=== PATIENT | female | born 1945 | race Caucasian/White ===

== ENCOUNTER 2017-11-13 12:15 | Emergency (ER) | payer MEDICARE ==
[~2017-11-13] VITALS: Ht 165.1 cm; Wt 68.2 kg
[~2017-11-13 12:15] MED LIST: ASPIRIN LOW DOS81 M2 PO; CITRACAL + D OR; DEBROX6.5 % AD; EFFEXOR XR150 MG OR; EFFEXOR XR150 MG PO; EFFEXOR XR75 MG PO; FLECAINIDE100 MG PO; FLUARIX QUADRIV1 INJ IM; FLUTICASONE50 MCG; GABAPENTIN600 MG PO; HYDROCO/APAP1 T10 OR; HYDROCORTISO2.51 EX; LEVOTHYROXIN100 MCG PO; LEVOTHYROXIN137 MCG PO; LEVOTHYROXIN150 MCG PO; LEVOTHYROXIN25 MCG OR; LEXAPRO10 MG PO; LISINOPRIL10 MG PO; MEDDOSEPAK PO; MELATONIN5 MG OR; MELOXICAM7.5 MG PO; METOPROL TAR25 MG PO; NEXIUM40 M1 OR; OMNICEF300 M1 PO; PRAVASTATIN SOD20 MG PO; PRAVASTATIN20 MG PO; SINGULAIR10 MG PO; SOMA350 MG OR; TENORMIN PO; ULTRAM50 M1 PO; VALERIAN OR; VITAMIN B-12250 MCG OR
[2017-11-13] MEDS ORDERED: XYZAL ALLERGY 245 MG PO (12:27)
[2017-11-13] MEDS ORDERED: LEVOTHYROXIN150 MC1 PO (12:29)
[2017-11-13] MEDS ORDERED: LEXAPRO10 MG PO (12:30)
[2017-11-13] MEDS ORDERED: DONEPEZIL5 MG PO (12:31)
[2017-11-13] MEDS ORDERED: COUMADIN5 MG PO (12:31)
[2017-11-13] MEDS ORDERED: NEURONTIN300 MG PO (12:32)
[2017-11-13] MEDS ORDERED: MAPAP500 MG PO (12:33)
[2017-11-13] MEDS ORDERED: ATORVASTATIN CA10 MG PO (12:34)
[2017-11-13 13:13] LABS: HEMATOCRIT 48.3 % (37.0-47.0); HEMOGLOBIN 16.1 g/dl (12.0-16.0); IMMATURE GRANULOCYTES 0.3 % (0.0-1.0); MEAN CELL VOLUME 86.3 fL CALC (80.0-100.0); MEAN CORPUSCULAR HGB 28.8 pG CALC (26.0-32.0); MEAN CORPUSCULAR HGB CONC 33.3 g/L CALC (32.0-36.0); NEUT# 9.37 thou/uL (2.00-7.15); RED BLOOD COUNT 5.6 mill/uL (4.20-5.60); RED CELL DISTRI WIDTH 13.2 % (11.5-15.5)
[2017-11-13 13:32] LABS: ALBUMIN 4.3 g/dL (3.2-5.0); ALKALINE PHOSPHATASE 114 u/l (38-126); ANION GAP 20 (6-22 (CALC)); BILIRUBIN, TOTAL 1.1 mg/dL (0.0-1.4); BUN 15 mg/dL (8-23); BUN/CREATININE RATIO 19 (12-20 (CALC)); CARBON DIOXIDE 21 mmol/l (22-30); CHLORIDE 104 mmol/l (95-108); CREATININE 0.8 mg/dL (0.5-1.0); GFR > 60 ML/MIN (>=60 (CALC)); GFR FOR AFR.AMER. > 60 ML/MIN (>=60 (CALC)); POTASSIUM 3.8 mmol/l (3.5-5.1); SGOT/AST 37 u/l (9-36); SGPT/ALT 15 u/l (11-66); SODIUM 142 mmol/l (137-146)
[2017-11-13 13:34] LABS: TOTAL PROTEIN 8.4 g/dL (6.3-8.2)
[2017-11-13 13:38] LABS: PROTHROMBIN TIME 11.5 SECONDS (9.0-12.5)
[2017-11-13 13:41] VITALS: BP 176/82
== END 2017-11-13 13:42 | disposition short-term general hospital (02) ==
LOC: ED 12:15
PROVIDERS: Emergency Medicine
DX: I63.9 Cerebral infarction, unspecified (principal); I10 Essential (primary) hypertension; I48.91 Unspecified atrial fibrillation; R47.01 Aphasia; R29.810 Facial weakness; R53.1 Weakness; R29.710 NIHSS score 10; R94.31 Abnormal electrocardiogram [ECG] [EKG]

== ENCOUNTER 2018-03-02 07:33 | Inpatient (IN) | payer MEDICARE ==
[~2018-03-02] VITALS: Ht 157.5 cm; Wt 54.4 kg
[~2018-03-02 07:33] MED LIST changes: +ATORVASTATIN CA40 MG PO; +COUMADIN5 MG PO; +DONEPEZIL5 MG PO; +MAPAP500 MG PO; +NEURONTIN300 MG PO; +XYZAL ALLERGY 245 MG PO
--- NOTE | 2018-03-02 07:46 | NUR ---
PT TO ER VIA EMS. EMS REPORTS VIA STATES THAT THE PT HAS NOT EATTEN OR TAKEN MEDS IN THE LAST 8 DAYS. PT PHYSICIAN WANTS PT EVALUATED FOR A FAILURE TO THRIVE. PT IS AOX1 TO SELF- CURRENT NORMAL FOR PT ACCORDING TO EMS. PT IS APHASIC AND UNABLE TO ANSWER WHAT BASIC ITEMS ARE.
--- NOTE | 2018-03-02 07:53 | NUR ---
UNABLE TO RECONCILE MEDS PATIENT CONFEUSED AND UNAWARE OF WHAT MEDICATIONS SHE CURRENTLY TAKES OR LAST TIME SHE TOOK THEM. THERE IS NO FAMILY AT BEDSIDE TO CONFIRM MEDS EITHER.
--- NOTE | 2018-03-02 08:53 | NUR ---
PT RESTING ON STRETCHER, IV PATENT WITH FLUIDS RUNNING. AT BEDSIDE
[2018-03-02 09:06] LABS: HEMATOCRIT 47.8 % (37.0-47.0); HEMOGLOBIN 16.2 g/dl (12.0-16.0); IMMATURE GRANULOCYTES 0.1 % (0.0-5.0); MEAN CELL VOLUME 89.3 fL CALC (80.0-100.0); MEAN CORPUSCULAR HGB 30.3 pG CALC (26.0-32.0); MEAN CORPUSCULAR HGB CONC 33.9 g/L CALC (32.0-36.0); NEUT# 5.67 thou/uL (2.00-7.15); RED BLOOD COUNT 5.35 mill/uL (4.20-5.60); RED CELL DISTRI WIDTH 13.2 % (11.5-15.5)
[2018-03-02 09:34] LABS: PROTHROMBIN TIME 11.4 SECONDS (9.0-12.5)
[2018-03-02 09:39] LABS: ALBUMIN 4.1 g/dL (3.2-5.0); ALKALINE PHOSPHATASE 92 u/l (38-126); ANION GAP 13 (6-22 (CALC)); BILIRUBIN, TOTAL 1.1 mg/dL (0.0-1.4); BUN 16 mg/dL (8-23); BUN/CREATININE RATIO 19 (12-20 (CALC)); CARBON DIOXIDE 26 mmol/l (22-30); CHLORIDE 110 mmol/l (95-108); CREATININE 0.9 mg/dL (0.5-1.0); GFR > 60 ML/MIN (>=60 (CALC)); GFR FOR AFR.AMER. > 60 ML/MIN (>=60 (CALC)); POTASSIUM 3.6 mmol/l (3.5-5.1); SGOT/AST 49 u/l (9-36); SGPT/ALT 32 u/l (11-66); SODIUM 145 mmol/l (137-146); TOTAL PROTEIN 7.4 g/dL (6.3-8.2)
--- NOTE | 2018-03-02 09:47 | NUR ---
PT RESTING ON STRETCHER, IV PATENT WITH FLUIDS RUNNING, NO PAIN OR EDEMA AT SITE. NO COMPLAINTS STATED. AT BEDSIDE
[2018-03-02 09:51] LABS: MYOGLOBIN 24 ng/mL (0 - 62)
--- NOTE | 2018-03-02 09:59 | NUR ---
URINE COLLECTED VIA STRAIGHT CATH USING STERILE PROCEDURE
[2018-03-02 10:10] LABS: TSH, 3RD GENERATION 1.03 uIU/mL (0.47 - 4.68)
[2018-03-02 10:17] LABS: URINE BILIRUBIN - DIPSTICK NEGATIVE (NEGATIVE); URINE BLOOD DIPSTICK TRACE-INTACT (NEGATIVE); URINE COLOR YELLOW; URINE GLUCOSE - DIPSTICK NEGATIVE (NEGATIVE); URINE KETONE TRACE mg/dL (NEGATIVE); URINE LEUK ESTERASE NEGATIVE (NEGATIVE); URINE PH 5.5 (4.5-8.0); URINE PROTEIN - DIPSTICK NEGATIVE (NEG-TRACE); URINE SPECIFIC GRAVITY >=1.030
[2018-03-02 10:18] LABS: URINE CLARITY SL CLOUDY; URINE NITRITE - DIPSTICK POSITIVE (Negative)
[2018-03-02 10:22] LABS: URINE BACTERIA MANY hpf
[2018-03-02 10:23] LABS: URINE RBC 0-2 RBC/hpf (0-5)
[2018-03-02 10:24] LABS: URINE AMORPH SEDIMENT FEW hpf (NONE-FEW); URINE HYALINE CAST FEW lpf (NONE-RARE); URINE SQUAMOUS EPITHELIAL CELL FEW EPI/hpf (0-FEW)
--- NOTE | 2018-03-02 10:26 | NUR ---
PATIENT RESTING AWAITNG RESULTS FROM MD PATIENT DENIES ANY PAIN OR DISCOMFORT AT THIS TIME. PATIENT REMAINS CONFUSED BUT IS HER NORMAL PER FAMILY.
--- NOTE | 2018-03-02 11:26 | NUR ---
PT RESTING ON STRETCHER, NO COMPLAINTS STATED, AWAITING ADMISSION
--- NOTE | 2018-03-02 11:43 | NUR ---
REPORT CALLED TO FLOR MARIANO
--- NOTE | 2018-03-02 11:50 | NUR ---
Admission Note Report Given to: FLOR RN Transported by: Wheelchair X Stretcher Transported with: X Nurse Transporter X Patent IV O2 X Practice Office Associate TRANSPORT[place] [facility] [place] [facility] [place]
--- NOTE | 2018-03-02 11:57 | NUR ---
PT CAME FROM ER VIA STRETCHER BY ANI. AMAYA IN ROOM TO TRANSFER PT TO BED. IN ROOM.
[2018-03-02 12:03] VITALS: BP 120/56
[2018-03-02] MEDS ORDERED: NORVASC5 M1 PO (14:55)
[2018-03-02] MEDS ORDERED: D3-10001000 UNIT PO (14:56)
[2018-03-02] MEDS ORDERED: OMEPRAZOLE20 M2 PO (14:57)
[2018-03-02] MEDS ORDERED: ELIQUIS5 MG PO (14:57)
[2018-03-02] MEDS ORDERED: SINGULAIR10 MG PO (14:58)
[2018-03-02] MEDS ORDERED: VITAMIN B-12100 MCG PO (14:59)
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
[2018-03-02] MEDS ORDERED: MIRALAX3350 NF PO (15:01)
[2018-03-02] MEDS ORDERED: AMIODARONE200 MG PO (15:16)
--- NOTE | 2018-03-02 15:28 | NUR ---
REFUSED PT EVAL. REPORTS SHE WAS FEELING TOO WEAK AND WANTED TO REST.
[2018-03-02 16:17] VITALS: BP 135/67
--- NOTE | 2018-03-02 16:24 | NUR ---
[facility] ESMER DOLAN IN TO SPEAK TO PATIENT BUT PATIENT IS CONFUSE. PATIENT STATED SHE LIVES WITH MOM AND DAD. ESMER STATED THAT PATIENT HOME HEALTH WERE CONCERN THAT SIGNIFICANT OTHER IS UNABLE TO TAKE CARE OF PATIENT. HE IS 84 YEARS OLD. ALSO ESMER IS SPEAKING NOW TO OPAL HILARIO.
[2018-03-02 19:10] VITALS: BP 151/70
--- NOTE | 2018-03-02 20:00 | NUR ---
BEDSIDE REPORT RECEIVED FROM GARCÍA CRUMP. PT RESTING IN BED ALERT WITH CONFUSION. DENIES PAIN CURRENTLY. RESPIRATIONS EVEN AND UNLABORED ON ROOM AIR. HYGEINE GIVEN AT THIS TIME FOR INCONTINENT URINE. SAFETY MEASURES IN PLACE. CALL LIGHT WITHIN REACH.
--- NOTE | 2018-03-03 00:28 | NUR ---
PT ASLEEP AT THIS TIME WITH NO SIGNS OF DISTRESS. RESPIRATIONS EVEN AND UNLABORED ON ROOM AIR. ALERT WITH CONFUSION. IV FLUIDS INFUSING WITHOUT DIFFICULTY; IV SITE APPEARS HEALTHY. PT IS MAX ASSIST; RESPOSITIONS SELF IN BED. NO REQUESTS OR COMPLAINTS AT THIS TIME. DOES NOT USE CALL LIGHT; NEEDS ARE ANTICIPATED BY STAFF. SAFETY MEASURES IN PLACE INCLUDING BED ALARM.
[2018-03-03 00:30] VITALS: BP 138/57
--- NOTE | 2018-03-03 04:00 | NUR ---
PT ASLEEP AT THIS TIME WITH NO SIGNS OF DISTRESS. RESPIRATIONS EVEN AND UNLABORED WITH NO SIGNS OF DISTRESS. NO ACUTE CHANGES IN CONDITION THROUGHOUT THE NIGHT. SAFETY MEASURES IN PLACE. CALL LIGHT WITHIN REACH.
[2018-03-03 04:45] VITALS: BP 111/73
[2018-03-03 05:05] LABS: IMMATURE GRANULOCYTES 0.3 % (0.0-5.0); MEAN CELL VOLUME 90.2 fL CALC (80.0-100.0); MEAN CORPUSCULAR HGB 30.5 pG CALC (26.0-32.0); MEAN CORPUSCULAR HGB CONC 33.8 g/L CALC (32.0-36.0); NEUT# 3.86 thou/uL (2.00-7.15); RED BLOOD COUNT 4.39 mill/uL (4.20-5.60); RED CELL DISTRI WIDTH 13.1 % (11.5-15.5)
[2018-03-03 05:09] LABS: HEMATOCRIT 39.6 % (37.0-47.0); HEMOGLOBIN 13.4 g/dl (12.0-16.0)
[2018-03-03 05:26] LABS: ANION GAP 11 (6-22 (CALC)); BUN 12 mg/dL (8-23); BUN/CREATININE RATIO 15 (12-20 (CALC)); CARBON DIOXIDE 25 mmol/l (22-30); CHLORIDE 112 mmol/l (95-108); CREATININE 0.8 mg/dL (0.5-1.0); GFR > 60 ML/MIN (>=60 (CALC)); GFR FOR AFR.AMER. > 60 ML/MIN (>=60 (CALC)); MAGNESIUM 1.7 mg/dL (1.6-2.3); POTASSIUM 3.4 mmol/l (3.5-5.1); SODIUM 144 mmol/l (137-146)
--- NOTE | 2018-03-03 07:00 | NUR ---
SHIFT CHANGE REPORT FROM CHARO, PT SLEEPING, BREATHING EVEN AND NON-LABORED, NO SIGN DISCOMFORT, IVF INFUSING, CALL SARMIENTO IN REACH.
[2018-03-03 08:53] VITALS: BP 136/65
[2018-03-03 11:17] VITALS: BP 125/63
--- NOTE | 2018-03-03 13:10 | NUR ---
SIGNIFICANT OTHER ASKED TO PROVIDE POA DOCS AND JUST BROUGHT THEM IN, CM (SANTO) REVIEWED DOCS AND MADE COPIES. PT CONFUSED AND DISORIENTED BUT FOLLOWS COMMANDS, BODY ALARM IN PLACE, WILL CONTINUE TO MONITOR.
[2018-03-03 15:37] VITALS: BP 118/64
--- NOTE | 2018-03-03 16:00 | NUR ---
POOR APPETITE, REFUSES TO EAT AND NEEDS MUCH ENCOURAGEMENT, ALWAYS STATES SHE IS NOT HUNGRY. ABDULLAHI FROM DIETARY CONSULTED AND MADE MODIFICATIONS TO MEAL, WILL CONTINUE TO MONITOR.
[2018-03-03 19:11] VITALS: BP 129/60
--- NOTE | 2018-03-03 20:00 | NUR ---
BEDSIDE REPORT RECEIVED FROM GARCÍA ESTEBAN. PT RESTING IN BED ON RIGHT SIDE WITH EYES CLOSED; AWAKENS TO VERBAL STIMULI. SHE OPENS HER EYES BUT DOES NOT LOOK TOWARDS SOUND; KEEPS HEAD TURNED TO THE RIGHT. SHE DENIES PAIN CURRENTLY. RESPIRATIONS EVEN AND UNLABORED ON ROOM AIR. UNABLE TO DISCUSS PLAN OF CARE R/T PT'S CONGNITIVE FUNCTION AT THIS TIME. SHE DOES NOT USE CALL LIGHT. NEEDS ARE ANICIPATED BY STAFF.
--- NOTE | 2018-03-04 00:12 | NUR ---
PT ASLEEP AT THIS TIME WITH NO SIGNS OF DISTRESS. RESPIRATIONS EVEN AND UNLABORED ON ROOM AIR. IV SITE APPEARS HEALTHY AND FLUSHES. NO REQUESTS OR CONCERNS AT THIS TIME. AMBULATES INDEPENDENTLY TO BATHROOM; USES CALL LIGHT PRN FOR ASSISTANCE. SAFETY MEASURES IN PLACE. CALL LIGHT WITHIN REACH.
--- NOTE | 2018-03-04 00:16 | NUR ---
PT ASLEEP AT THIS TIME WITH NO SIGNS OF DISTRESS. RESPIRATIONS EVEN AND UNLABORED ON ROOM AIR. IV FLUIDS INFUSING WITHOUT DIFFICULTY; IV SITE APPEARS HEALTHY. PT ASSISTED WITH TURNING AND HYGIENE GIVEN FOR INCONTINENT EPISODES. PT REMAINS ON ASPIRATION PRECAUTIONS AND HONEY THICKENED LIQUIDS. SAFETY MEASURES IN PLACE. CALL LIGHT WITHIN REACH.
--- NOTE | 2018-03-04 04:05 | NUR ---
NO ACUTE CHANGES IN CONDITION THROUGHOUT THE NIGHT. CALL LIGHT WITHIN REACH. NEEDS ANITICIAPTED BY STAFF.
--- NOTE | 2018-03-04 04:26 | NUR ---
PT NO LONGER IN AFIB; EKG CONFIRMED SINUS BRADYCARDIA
[2018-03-04 04:56] VITALS: BP 126/60
[2018-03-04 09:05] VITALS: BP 119/40
--- NOTE | 2018-03-04 09:05 | NUR ---
ASSESSMENT IS COMPLETED: IV SITE IS FREE FROM REDNESS OR EDEMA. HR IS REG, PULSES ARE STRONG X4, ABD IS SOFT WITH ACTIVE BS., TELE MONITOR IN PLACE. BREATH SOUNDS ARE CLEAR, BILATERALLY. CONITNUE TO OBSERVE AND MONITOR.
[2018-03-04 10:58] VITALS: BP 123/70
--- NOTE | 2018-03-04 12:56 | NUR ---
Pt seen for therapy this pm. She was in bed, alert but did not answer all questions appropriately. She performed AROM to all extremities with guidance of therapist in supine. Pt required mod/max assist to move supine to and from sit. CGA required to maintain sitting and encourage pt to lean towards the L. Pt was able to do LAQ in sitting. Sit to stand with max assist x 1, she was able to wt bear on LE but after standing wanted to sit and lean back to bed. Pt returned to supine and positioned appropriately with alarm on, call romero in reach, caregiver in room.
[2018-03-04] MEDS ORDERED: MACROBID100 MG PO (14:12)
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
[2018-03-04 14:54] VITALS: BP 108/53
[2018-03-04 19:00] VITALS: BP 126/57
--- NOTE | 2018-03-04 19:28 | NUR ---
PT IS IN BED ON SIDE W/BED ALARM ON, AIDE WAS JUST IN W/PT OFFERING FOOD AND PO FLUIDS. SHE REPORTS THAT SHE HAS REFUSED. WILL CONTINUE TO ENCOURAGE THESE.
--- NOTE | 2018-03-04 23:15 | NUR ---
PT MEDICATED ORDERS PROVIDE. PT WAS INCONTINENT OF URINE, WE PROVIDED FULL BED BATH AND CHANGED GOWN AND BEDDING. PT CONFUSED BUT NOT COMBATIVE. TELE PLACED BACK. NO S/O PAIN OR DISTRESS OTHER THAN CONFUSION OVER WHAT IS HAPPENING. PT ENCOURAGED TO DRINK THICKENED WATER AND EAT APPLE SAUCE WITH PILLS. SHE ACCEPTED THREE BITES OF THE APPLE S. AND TWO SIPS OF WATER THEN REFUSED ANY FURTHER. PT LEFT CALM IN BED WITH LIGHTS LOW AND BED ALARM ON.
[2018-03-05 00:05] VITALS: BP 99/57
--- NOTE | 2018-03-05 04:43 | NUR ---
PT V/S ASSESSED AND PT CLEANED OF INCONTINENT URINE. PT IS NOT SELF TURNING AND KEEPS GRAVITATING TO HER RIGHT SIDE. WE REPOSITIONED HER TO HER LEFT SIDE WITH PILLOWS. WILL ADD PT TO Q2 TURNS INTERVENTIONS.
[2018-03-05 05:11] VITALS: BP 101/67
--- NOTE | 2018-03-05 06:01 | NUR ---
PT MEDICATED ORDERS PROVIDE AND REPOSITIONED SOME WITH PILLOWS. PILLS PROVIDED WITH APPLE SAUCE AND THICKENED WATER.
--- NOTE | 2018-03-05 07:00 | NUR ---
REPORT RECEIVED FROM GARCÍA MANZO; PT RESTING ON RT SIDE WITH EYES CLOSED; IVF INFUSING WITHOUT DIFFICULTY; BED ALARM IN PLACE FOR SAFETY; CALL SARMIENTO WITHIN REACH; WILL CONTINUE TO MONITOR
--- NOTE | 2018-03-05 07:40 | NUR ---
PT. MAX ASSIST UP TO CHAIR BY SOAKER; ATTEMPTED TO ASSIST PT WITH BREAKFAST; PT REFUSE MEAL AND ALL LIQUIDS; BED ALARM IN PLACE FOR SAFETY; CALL SARMIENTO WITHIN REACH; WILL CONTINUE TO MONITOR.
[2018-03-05 07:50] VITALS: BP 90/45
--- NOTE | 2018-03-05 10:04 | NUR ---
pt. up in chair; sio at bedside; pt took meds in applesauce with a lot of coaching; bed alarm in place for safety; call romero within reach; will continue to monitor
[2018-03-05 11:13] VITALS: BP 90/50
--- NOTE | 2018-03-05 14:19 | NUR ---
DR. TAPIA IN TO SEE PT; PLAN OF CARE DISCUSSED
[2018-03-05 15:12] VITALS: BP 101/50
--- NOTE | 2018-03-05 16:32 | NUR ---
pt. repostioned and seema care q2h by THERAPEUTIC RADIOLOGIST; no s/sx of distress noted; tele monitor in place; call romero within reach; bed alarm in place for safety; will continue to monitor.
--- NOTE | 2018-03-05 18:08 | NUR ---
PT IN HIGH ARVIZU'S POSITION; PT TOOK IN MIN AMOUNT OF FOOD AND LIQUID TODAY; CALL SARMIENTO WITHIN REACH; BED ALARM IN PLACE FOR SAFETY
[2018-03-05 19:00] VITALS: BP 118/73
--- NOTE | 2018-03-05 19:00 | NUR ---
PT IS IN BED WITH LIGHTS AND TV ON. AWAKE AND RESPONSIVE APPROPRIATELY, BUT REFUSING PO FLUIDS. REORIENTED TO CALL LIGHT AND PLACED IN HAND FOR REACH.
--- NOTE | 2018-03-05 21:23 | NUR ---
PT MEDICATED ORDERS PROVIDE. PT WAS RESISTANT TO MEDICATIONS, BUT FINALLY AGREED WITH APPLE SAUCE 1X BITE, REFUSED ANYMORE, SHE ACCEPTED 3 SIPS OF PO FLUIDS AND REFUSED ANYMORE. SHE WAS LOC TO SELF AND ONLY, CONFUSED ABOUT LOCATION AND CIRCUMSTANCE. LUNG SOUNDS ARE CLEAR, ABD SOFT NON-TENDER W/ACTIVE BOWEL SOUNDS. MILD WEAKNESS ON LEFT SIDE.
[2018-03-06 00:15] VITALS: BP 117/70
--- NOTE | 2018-03-06 00:31 | NUR ---
PT.SLEEPING AT THIS TIME. REPOSITIONED AND CHECKED FOR URINE INCONTINENT. NO S/S OF DISTRESS AT THIS TIME.
[2018-03-06 04:00] VITALS: BP 120/83
--- NOTE | 2018-03-06 05:21 | NUR ---
PT CLEANED OF INCONTINENT URINE. REPOSITIONED TO LEFT SIDE. PT MEDICATED W/AM MEDICATIONS AND MIRILAX IN OJ THICKENED. PT DRANK HALF OF HER MIRILAX, WILL CONTINUE TO TRY AND GET HER TO DRINK THE REMAINDER PRIOR TO MY SHIFT CHANGE.
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
[2018-03-06 08:27] VITALS: BP 106/61
[2018-03-06 13:00] VITALS: BP 112/71
--- NOTE | 2018-03-06 13:32 | NUR ---
ASSISTED WITH MEAL, SITTING UP IN RECLINER AT THIS TIME, CALL SARMIENTO IN REACH.
[2018-03-06 16:00] VITALS: BP 122/69
--- NOTE | 2018-03-06 16:00 | NUR ---
SLEEPING IN BED, APPEARS COMFORTABLE.
[2018-03-06 19:00] VITALS: BP 125/58
--- NOTE | 2018-03-06 19:20 | NUR ---
PT IS IN BED AWAKE WITH LIGHTS AND TV ON. WHEN ASKED HOW SHE IS FEELING SHE REPLIED APPROPRIATLEY WITH "MUCH BETTER TODAY." APPEARS TO BE MORE RESPONSIVE AND VERBALLY APPROPRIATE. WILL CONTINUE TO MONITOR. BED ALARM ON.
--- NOTE | 2018-03-06 23:07 | NUR ---
PT WAS SLEEPING AND DIFFICULT TO WAKE. MEDICATIONS ADMINISTERED WITH APPLE SAUCE AND A COUPLE OF SIPS OF FLUIDS. REFUSED ANYMORE LIQUIDS OR FOOD. REPOSITIONED. CALL LIGHT AT BEDSIDE.
[2018-03-07 00:34] VITALS: BP 107/52
--- NOTE | 2018-03-07 04:16 | NUR ---
PT WAS SLEEPING UPON ENTERING ROOM, BUT AWOKE TO MY VOICE. MEDICATED WITH MIRILAX MIXED WITH THICKENER AND ORANGE JUICE FOR CONSTIPATION. PT IS ALERT TO SELF, COOPERATIVE AND ANSWER QUESTIONS SOMEWHAT APPROPRIATELY/CONFUSED TO SITUATION, BUT COOPERATES WITH CARE FOR THE MOST PART. 120CC PO FLUIDS ADMINISTERED AND THEN REFUSED ANYMORE. NO S/S OF DISTRESS OR DISCOMFORT. LIGHTS AND TV ON. PT REPOSITIONED FOR PRESSURE CARE.
[2018-03-07 04:57] VITALS: BP 92/50
--- NOTE | 2018-03-07 06:22 | NUR ---
ED CALLED TO REPORT PT HR SB45, PT IS ASYMPTOMATIC, SITTING IN RECLINER SLEEPING, BUT AWOKE TO MY VOICE. SHE WAS RESPONSIVE AND TOOK A COUPLE OF SIPS OF JUICE. HR SUSTAINED 59-69 AT THIS TIME.
--- NOTE | 2018-03-07 07:00 | NUR ---
SHIFT CHANGE REPORT FROM JOSE F MANZO AWAKE AND ALERT SITTING UP IN RECLINER, NO C/O DISCOMFORT, IVF INFUSING, CALL SARMIENTO IN REACH.
[2018-03-07 07:36] VITALS: BP 127/51
--- NOTE | 2018-03-07 08:56 | NUR ---
Pt seen this am for gait and ther ex. She was OOB in chair. Ther ex performed in sitting. Pt stood with min assist and ambulated x 10' with RW. Attempted another walk with walker but pt got distracted and fixated on telemetry box and was ambulated with min assist of 1 approx 10'. Pt returned to bed with min assist to position in bed. Call romero left with pt and bed alarm on. Nursing aware.
[2018-03-07 11:20] VITALS: BP 105/64
--- NOTE | 2018-03-07 12:48 | NUR ---
RESTING IN BED, ATE SMALL AMOUNT MEAL, COMFORTABLE, CALL SARMIENTO IN REACH.
--- NOTE | 2018-03-07 15:00 | NUR ---
Discharge instructions given. Patient verbalizes understanding of same. Discharged in stable condition via Wheelchair to ACLF with *Other. All belongings sent with pt.
== END 2018-03-07 14:52 | disposition home or self-care (01) | DRG 640 ==
LOC: ED 07:33 → ED-I 10:29 → ED 10:47 → MS2 10:48
PROVIDERS: Emergency Medicine; Nurse Practitioner Family; ADMIT Internal Medicine; ATTEND Internal Medicine
DX: R62.7 Adult failure to thrive (principal); E43 Unspecified severe protein-calorie malnutrition; N39.0 Urinary tract infection, site not specified; I69.354 Hemiplegia and hemiparesis following cerebral infarction affecting left non-dominant side; F03.91 Unspecified dementia, unspecified severity, with behavioral disturbance; I10 Essential (primary) hypertension; E78.5 Hyperlipidemia, unspecified; E03.9 Hypothyroidism, unspecified; I69.398 Other sequelae of cerebral infarction; H47.612 Cortical blindness, left side of brain; G62.9 Polyneuropathy, unspecified; F32.9 Major depressive disorder, single episode, unspecified; I48.0 Paroxysmal atrial fibrillation; E87.6 Hypokalemia; B96.20 Unspecified Escherichia coli [E. coli] as the cause of diseases classified elsewhere; Z68.21 Body mass index [BMI] 21.0-21.9, adult; Z66 Do not resuscitate; Z91.81 History of falling; Z79.01 Long term (current) use of anticoagulants
CPT/HCPCS: G0378

== ENCOUNTER 2018-10-25 13:27 | Emergency (ER) | payer MEDICARE ==
[~2018-10-25] VITALS: Ht 157.5 cm; Wt 80.0 kg
[~2018-10-25 13:27] MED LIST changes: +AMIODARONE200 MG PO; +D3-10001000 UNIT PO; +ELIQUIS5 MG PO; +MACROBID100 MG PO; +MIRALAX3350 NF PO; +NORVASC5 M1 PO; +OMEPRAZOLE20 M2 PO; +VITAMIN B-12100 MCG PO
[2018-10-25] MEDS ORDERED: LEXAPRO5 MG PO (13:49)
[2018-10-25] MEDS ORDERED: DOCUSATE SOD100 MG PO (13:50)
[2018-10-25] MEDS ORDERED: XARELTO20 MG PO (13:51)
[2018-10-25 14:01] LABS: HEMATOCRIT 39.8 % (37.0-47.0); IMMATURE GRANULOCYTES 0.3 % (0.0-5.0); MEAN CELL VOLUME 90.2 fL CALC (80.0-100.0); MEAN CORPUSCULAR HGB 29.5 pG CALC (26.0-32.0); MEAN CORPUSCULAR HGB CONC 32.7 g/L CALC (32.0-36.0); NEUT# 5.27 thou/uL (2.00-7.15); RED BLOOD COUNT 4.41 mill/uL (4.20-5.60); RED CELL DISTRI WIDTH 12.4 % (11.5-15.5)
[2018-10-25 14:21] LABS: ALBUMIN 3.5 g/dL (3.2-5.0); ALKALINE PHOSPHATASE 72 u/l (38-126); ANION GAP 13 (6-22 (CALC)); BILIRUBIN, TOTAL 0.5 mg/dL (0.0-1.4); BUN 21 mg/dL (8-23); BUN/CREATININE RATIO 27 (12-20 (CALC)); CARBON DIOXIDE 24 mmol/l (22-30); CHLORIDE 111 mmol/l (95-108); CREATININE 0.8 mg/dL (0.5-1.0); GFR > 60 ML/MIN (>=60 (CALC)); GFR FOR AFR.AMER. > 60 ML/MIN (>=60 (CALC)); POTASSIUM 3.8 mmol/l (3.5-5.1); SGOT/AST 19 u/l (9-36); SODIUM 143 mmol/l (137-146); TOTAL PROTEIN 6.3 g/dL (6.3-8.2)
[2018-10-25 14:35] LABS: URINE BILIRUBIN - DIPSTICK NEGATIVE (NEGATIVE); URINE BLOOD DIPSTICK LARGE (NEGATIVE); URINE COLOR BROWN; URINE GLUCOSE - DIPSTICK NEGATIVE (NEGATIVE); URINE KETONE 15 mg/dL (NEGATIVE); URINE PH 6.5 (4.5-8.0); URINE PROTEIN - DIPSTICK >=300 mg/dL (NEG-TRACE); URINE SPECIFIC GRAVITY 1.025
[2018-10-25 14:36] LABS: URINE LEUK ESTERASE SMALL (NEGATIVE); URINE NITRITE - DIPSTICK POSITIVE (Negative)
[2018-10-25 14:39] LABS: URINE RBC TNTC RBC/hpf (0-5); URINE SQUAMOUS EPITHELIAL CELL FEW EPI/hpf (0-FEW)
[2018-10-25] MEDS ORDERED: PYRIDIUM200 MG PO (14:42)
[2018-10-25] MEDS ORDERED: KEFLEX500 M1 PO (14:42)
[2018-10-25 15:07] VITALS: BP 123/56
== END 2018-10-25 15:40 | disposition home or self-care (01) ==
LOC: ED 13:27
PROVIDERS: Emergency Medicine
DX: N39.0 Urinary tract infection, site not specified (principal); R31.9 Hematuria, unspecified

== ENCOUNTER 2019-08-11 | Observation (INO) | payer MEDICARE ==
[~2019-08-11] MED LIST changes: +DOCUSATE SOD100 MG PO; +KEFLEX500 M1 PO; +LEXAPRO5 MG PO; +PYRIDIUM200 MG PO; -VITAMIN B-12100 MCG PO; +VITAMIN B-121000 MCG PO; +XARELTO20 MG PO
--- NOTE | 2019-08-11 01:00 | NUR ---
Patient resting in the bed with eyes closed, No seizure activity noted
--- NOTE | 2019-08-11 07:35 | NUR ---
PT TO ROOM 12 VIA EMS STRECTHER FOR BEDSIDE TRIAGE
[2019-08-11 08:05] LABS: HEMATOCRIT 43.3 % (37.0-47.0); IMMATURE GRANULOCYTES 0.1 % (0.0-5.0); MEAN CELL VOLUME 91.9 fL CALC (80.0-100.0); MEAN CORPUSCULAR HGB 29.7 pG CALC (26.0-32.0); MEAN CORPUSCULAR HGB CONC 32.3 g/L CALC (32.0-36.0); NEUT# 4.59 thou/uL (2.00-7.15); RED BLOOD COUNT 4.71 mill/uL (4.20-5.60); RED CELL DISTRI WIDTH 12.5 % (11.5-15.5)
--- NOTE | 2019-08-11 08:05 | NUR ---
PT RESTING OFFERS NO NEW COMPLAINTS, NO SEIZURE ACTIVITY NOTED, NO S/S OF PAIN OR DISTRESS NOTED. FOLLOW SIMPLE COMMANDS ANSWERS QUESTIONS WITH ONE WORD ANSWERS SPOUSE AT BEDSIDE
[2019-08-11 08:26] LABS: ALBUMIN 3.9 g/dL (3.2-5.0); ALKALINE PHOSPHATASE 74 u/l (38-126); ANION GAP 18 (6-22 (CALC)); BILIRUBIN, TOTAL 0.7 mg/dL (0.0-1.4); BUN 21 mg/dL (8-23); BUN/CREATININE RATIO 28 (12-20 (CALC)); CHLORIDE 108 mmol/l (95-108); CREATININE 0.8 mg/dL (0.5-1.0); GFR > 60 ML/MIN (>=60 (CALC)); GFR FOR AFR.AMER. > 60 ML/MIN (>=60 (CALC)); POTASSIUM 3.9 mmol/l (3.5-5.1); SGOT/AST 22 u/l (9-36); SODIUM 142 mmol/l (137-146)
[2019-08-11 08:29] LABS: CARBON DIOXIDE 20 mmol/l (22-30)
--- NOTE | 2019-08-11 08:58 | NUR ---
PT AND SPOUSE AWARE OF NEED FOR URINE AND POTENTIAL STRAIGHT CATH. VERBALIZE UNDERSTANDING
--- NOTE | 2019-08-11 09:28 | NUR ---
PT AND SPOUSE AWARE OF PANNED ADMISSION, CALL SARMIENTO WITHINR EACH
[2019-08-11 10:23] LABS: URINE BILIRUBIN - DIPSTICK NEGATIVE (NEGATIVE); URINE BLOOD DIPSTICK TRACE-INTACT (NEGATIVE); URINE COLOR YELLOW; URINE GLUCOSE - DIPSTICK NEGATIVE (NEGATIVE); URINE KETONE NEGATIVE (NEGATIVE); URINE LEUK ESTERASE NEGATIVE (NEGATIVE); URINE NITRITE - DIPSTICK NEGATIVE (Negative); URINE PROTEIN - DIPSTICK NEGATIVE (NEG-TRACE); URINE UROBILINOGEN - DIPSTICK 0.2 E.U./dL (0.2)
--- NOTE | 2019-08-11 10:45 | NUR ---
PT RESTING, REPOSITIONED FRO COMFORT, VS STABLE AND NO S/S OF DISTRESS OR DISCOMFORT NOTED, NO SEIZURE ACTIVITYU NOTED
--- NOTE | 2019-08-11 11:45 | NUR ---
LUNCH AT BEDSIDE ATTEMPTED TO FEED PT WITHOUT SUCCESS, PT DECLINES AT THIS TIME, WILL REATTEMPT WHEN RETURNS
--- NOTE | 2019-08-11 12:45 | NUR ---
SPOUSE AT BEDSIDE AN ATTEMPTING TO FEED PT
--- NOTE | 2019-08-11 13:13 | NUR ---
SBAR PRINTED TO FLOOR
--- NOTE | 2019-08-11 13:39 | NUR ---
PT TOLERATING MEAL TAKING SLOWLY WITH SPOUSE ASSIST. BED ASSIGNMENT REC'D WILL ATTEMPT TO CALL REPORT.
[2019-08-11 14:35] VITALS: BP 137/72
--- NOTE | 2019-08-11 14:35 | NUR ---
RECEIVED INTO ROOM 289 FROM ER VIA WC. ASSISTED INTO BED. SPOUSE IS WITH PAITENT. ATTEMPTS TO ORIENT TO SURROUNDINGS. ADMISSION ASSESSMENT COMPLETED WITH ASSISTANCE OF SPOUSE. RESP NON-LABORED. LUNGS CLEAR. IV IN LFA WITH NS INFUSING AT 100 ML/HR.
--- NOTE | 2019-08-11 14:35 | NUR ---
PT TRANSPORTED TO MED SURG VIA WHEELCHAIR, NURSE JEZ AT BEDSIDE LASHAE RRIVAL.
--- NOTE | 2019-08-11 16:30 | NUR ---
PATIENT RESTING CALMLY IN BED. NO SEIZURE ACTIVITY OBSERVED.
[2019-08-11 18:50] VITALS: BP 138/58
--- NOTE | 2019-08-11 21:00 | NUR ---
Patient A&0x1. Patient on Room Air. No s/s of pain, No s/s of resp. distress. Patient is on seizure precaution. IV has no issues with ordered fluids running. Patient skin is intact. 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 Head to Toe Assessment performed. POC reviewed by Nurse
[2019-08-12 04:00] VITALS: BP 104/54
[2019-08-12 07:40] VITALS: BP 122/68
--- NOTE | 2019-08-12 07:40 | NUR ---
RESTING IN BED ON ROUNDS. RESP NON-LABORED. LUNGS CLEAR. PATIENT IS INCONTINENT WEARS A BRIEF. NO PERIPHERAL EDEMA, PULSES PALPABLE. IV IN LFA, SITE BENIGN, NS INFUSING AT 100 ML/HR. TELEMETRY SHOWS SB.
--- NOTE | 2019-08-12 10:00 | NUR ---
AT BEDSIDE. PATIENT REMAINS CONFUSED BUT TALKATIVE WITH SPOUSE.
--- NOTE | 2019-08-12 11:43 | NUR ---
REPOSITIONED IN BED FOR LUNCH. SITTING UP IN HIGH FOWLERS. ASSISTS PATIENT WITH LUNCH TRAY. NO SEIZURE ACTIVITY OBSERVED SINCE PATIENT ARRIVED AT HOSPITAL YESTERDAY.
[2019-08-12] MEDS ORDERED: ATORVASTATIN CA40 MG PO (13:21)
[2019-08-12] MEDS ORDERED: KEPPRA500 M2 PO (13:22)
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
[2019-08-12 15:49] VITALS: BP 109/55
--- NOTE | 2019-08-12 17:00 | NUR ---
PATIENT INCONTINENT OF URINE MANUEL-CARE GIVEN. PATIENT IS READY FOR DISCHARGE.
--- NOTE | 2019-08-12 17:18 | NUR ---
Discharge instructions given. Patient spouse verbalizes understanding of same. Discharged in stable condition to [facility] via Wheelchair to ACLF with spouse. All belongings sent with pt.
== END 2019-08-12 17:18 | disposition home or self-care (01) ==
PROVIDERS: Family Medicine; ADMIT Internal Medicine
DX: R56.9 Unspecified convulsions (principal); I10 Essential (primary) hypertension; I48.20 Chronic atrial fibrillation, unspecified; I69.398 Other sequelae of cerebral infarction; F01.50 Vascular dementia, unspecified severity, without behavioral disturbance, psychotic disturbance, mood disturbance, and anxiety; E78.5 Hyperlipidemia, unspecified; E03.9 Hypothyroidism, unspecified; G62.9 Polyneuropathy, unspecified; I69.391 Dysphagia following cerebral infarction; R13.10 Dysphagia, unspecified; Z79.01 Long term (current) use of anticoagulants
CPT/HCPCS: G0378

== ENCOUNTER 2020-01-11 09:04 | Observation (INO) | payer MEDICARE ==
[~2020-01-11] VITALS: Ht 157.5 cm; Wt 62.0 kg
[~2020-01-11 09:04] MED LIST changes: +KEPPRA500 M2 PO
--- NOTE | 2020-01-11 09:12 | NUR ---
PT IMMEDIATELY TO RM 12 VIA EMS STRETCHER.
[2020-01-11 09:36] LABS: HEMATOCRIT 41.8 % (37.0-47.0); HEMOGLOBIN 13.7 g/dl (12.0-16.0); IMMATURE GRANULOCYTES 0.7 % (0.0-5.0); MEAN CELL VOLUME 89.1 fL CALC (80.0-100.0); MEAN CORPUSCULAR HGB 29.2 pG CALC (26.0-32.0); MEAN CORPUSCULAR HGB CONC 32.8 g/dL CAL (32.0-36.0); NEUT# 11.73 thou/uL (2.00-7.15); RED BLOOD COUNT 4.69 mill/uL (4.20-5.60)
--- NOTE | 2020-01-11 10:00 | NUR ---
RECIEVED REPORT BY WINDY
[2020-01-11 10:04] LABS: ALBUMIN 3.8 g/dL (3.2-5.0); ALKALINE PHOSPHATASE 62 u/l (38-126); ANION GAP 11 (6-22 (CALC)); BILIRUBIN, TOTAL 0.6 mg/dL (0.0-1.4); BUN 15 mg/dL (8-23); BUN/CREATININE RATIO 22 (12-20 (CALC)); CARBON DIOXIDE 25 mmol/l (22-30); CHLORIDE 108 mmol/l (95-108); CREATININE 0.7 mg/dL (0.5-1.0); GFR > 60 ML/MIN (>=60 (CALC)); GFR FOR AFR.AMER. > 60 ML/MIN (>=60 (CALC)); LIPASE 142 u/l (23-300); POTASSIUM 3.8 mmol/l (3.5-5.1); SGOT/AST 26 u/l (9-36); SODIUM 140 mmol/l (137-146); TOTAL PROTEIN 6.8 g/dL (6.3-8.2)
--- NOTE | 2020-01-11 11:00 | NUR ---
FAMILY NOTIFIED OF WAIT TIME BECAUSE OF BUSY ER. PT IS RESTING WITH EYES CLOSED ON HER RIGHT SIDE IN POSITION
--- NOTE | 2020-01-11 12:00 | NUR ---
URINE IS NEEDED, STRAIGHT CATH FOR URINE DONE SOON AND PT NOTIFIED
--- NOTE | 2020-01-11 12:30 | NUR ---
PT INCONTINENT OF STOOL. CLEANED AND STRAIGHT CATED FOR URINE SAMPLE.
[2020-01-11 12:45] LABS: URINE BILIRUBIN - DIPSTICK NEGATIVE (NEGATIVE); URINE BLOOD DIPSTICK LARGE (NEGATIVE); URINE COLOR YELLOW; URINE GLUCOSE - DIPSTICK NEGATIVE (NEGATIVE); URINE KETONE NEGATIVE (NEGATIVE); URINE LEUK ESTERASE NEGATIVE (NEGATIVE); URINE PH 5.5 (4.5-8.0); URINE PROTEIN - DIPSTICK NEGATIVE (NEG-TRACE); URINE SPECIFIC GRAVITY 1.025; URINE UROBILINOGEN - DIPSTICK 0.2 E.U./dL (0.2)
[2020-01-11 12:49] LABS: URINE NITRITE - DIPSTICK POSITIVE (Negative)
[2020-01-11 13:09] LABS: URINE BACTERIA MODERATE hpf; URINE RBC TNTC RBC/hpf (0-5); URINE SQUAMOUS EPITHELIAL CELL FEW EPI/hpf (0-FEW)
--- NOTE | 2020-01-11 13:15 | NUR ---
PT RESTING WITH EYES CLOSED. LIGHTS DIMMED FOR COMFORT.
--- NOTE | 2020-01-11 13:30 | NUR ---
GAVE REPORT TO CHARO IN MED SURG
--- NOTE | 2020-01-11 13:50 | NUR ---
PT TRANSPORTED TO [facility] SURG STABLE AND IN NO DISTRESS BY STRETCHER. PT CARE ASSUMED TO CHARO. Admission Note Report Given to: Transported by: Wheelchair X Stretcher Transported with: X Nurse Transporter X Patent IV O2 X Beef Splitter Location: ICU X MS2
[2020-01-11] MEDS ORDERED: XARELTO20 MG PO (13:54)
[2020-01-11] MEDS ORDERED: NORVASC5 M1 PO (13:57)
[2020-01-11] MEDS ORDERED: DOCUSATE CAL240 MG PO (13:58)
[2020-01-11] MEDS ORDERED: ESCITALOPRAM OX10 MG PO (13:59)
[2020-01-11] MEDS ORDERED: LEVOTHYROXIN125 MCG PO (14:00)
[2020-01-11] MEDS ORDERED: MONTELUKAST SOD10 MG PO (14:01)
[2020-01-11] MEDS ORDERED: OMEPRAZOLE20 MG PO (14:02)
[2020-01-11] MEDS ORDERED: VITAMIN D31000 UNI1 PO (14:03)
[2020-01-11] MEDS ORDERED: VITAMIN B-121000 MCG PO (14:04)
[2020-01-11] MEDS ORDERED: METOPROL TAR25 MG PO (14:05)
[2020-01-11] MEDS ORDERED: LIPITOR40 M1 PO (14:07)
[2020-01-11] MEDS ORDERED: PEG 3350 PO (14:09)
[2020-01-11] MEDS ORDERED: [UNRECOGNIZED DRUG - OTHER] PO (14:11)
--- NOTE | 2020-01-11 14:30 | NUR ---
PT ARRIVED TO UNIT AT 1402 VIA STRETCHER; EYES CLOSED AND ON LEFT SIDE WITH NO SIGNS OF DISTRESS. OPENS EYES TO VERBAL STIMULI. OREINTED TO FIRST NAME ONLY; WHEN ASKED LAST NAME PT RESPONDS, "YES MY MOTHER AND BROTHER WERE THERE ." AND OTHER INAPPROPRIATE STATEMENTS. PT TRANSPORTED ONTO SMALL MRI STRETCHER AND IMMEDIATELY TRANSPORTED TO MRI WITH RN IN STABLE CONDITION.
--- NOTE | 2020-01-11 15:01 | NUR ---
PT RETURNED FROM MRI AND SLID FROM STRETCHER TO BED WITH 2 PERSON ASSIST; PT UNABLE TO PARTICIPATE IN MOVE; TOTAL ASSIST. INCONTINENT OF MODERATE AMOUNT OF YELLOW URINE. NOW RESTING SEMI FOWLERS WITH BED ALARM. CURRENTLY ALERT WITH CONFUSION.
[2020-01-11 15:23] VITALS: BP 162/79
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
[2020-01-11 17:43] VITALS: BP 138/94
[2020-01-11 18:30] VITALS: BP 131/89
--- NOTE | 2020-01-11 18:47 | NUR ---
AFIB ON TELEMETRY WITH HEART RATE FROM 110S-130S PER ER FINANCIAL COUNSELOR. RT AT BEDSIDE FOR EKG.
--- NOTE | 2020-01-11 19:08 | NUR ---
EKG REPORTS AFIB WITH HR OF 125. NEW ORDER FROM DR MATTA TO GIVEN HS LOPRESSOR EARLY AND CHANGE TO IV. NOTIFY IF HEART RATE CONTINUES TO REMAIN ELEVATED.
[2020-01-11 23:30] VITALS: BP 114/71
[2020-01-12 04:15] VITALS: BP 113/73
[2020-01-12 04:59] LABS: HEMATOCRIT 44.4 % (37.0-47.0); HEMOGLOBIN 14.3 g/dl (12.0-16.0); IMMATURE GRANULOCYTES 0.2 % (0.0-5.0); MEAN CELL VOLUME 90.1 fL CALC (80.0-100.0); MEAN CORPUSCULAR HGB CONC 32.2 g/dL CAL (32.0-36.0); NEUT# 6.15 thou/uL (2.00-7.15); RED BLOOD COUNT 4.93 mill/uL (4.20-5.60); RED CELL DISTRI WIDTH 12.9 % (11.5-15.5)
[2020-01-12 05:25] LABS: ALBUMIN 3.9 g/dL (3.2-5.0); ALKALINE PHOSPHATASE 74 u/l (38-126); ANION GAP 12 (6-22 (CALC)); BILIRUBIN, TOTAL 1.3 mg/dL (0.0-1.4); BUN 14 mg/dL (8-23); BUN/CREATININE RATIO 22 (12-20 (CALC)); CARBON DIOXIDE 24 mmol/l (22-30); CHLORIDE 107 mmol/l (95-108); CREATININE 0.7 mg/dL (0.5-1.0); GFR > 60 ML/MIN (>=60 (CALC)); GFR FOR AFR.AMER. > 60 ML/MIN (>=60 (CALC)); POTASSIUM 4.5 mmol/l (3.5-5.1); SGOT/AST 43 u/l (9-36); SODIUM 138 mmol/l (137-146); TOTAL PROTEIN 7.2 g/dL (6.3-8.2)
--- NOTE | 2020-01-12 07:00 | NUR ---
Report to Ceci oncoming nurse, left in stable condition, tele remains intact.
--- NOTE | 2020-01-12 07:05 | NUR ---
REPORT RECEIVED FROM GARCÍA MANZO. PT RESTING IN BED ON RIGHT SIDE WITH EYES CLOSED AND NO SIGNS OF DISTRESS. RESPIRATIONS EVEN AND UNLABORED ON ROOM AIR. RESPONDS TO TACTILE STIMULI. ANSWERS SIMPLE QUESTIONS; PT REMAINS CONFUSED, BUT MENTATION IS IMPROVED SINCE YESTERDAY. SAFETY MEASURES IN PLACE. NEEDS ARE ANTICIPATED BY STAFF.
[2020-01-12 08:00] VITALS: BP 97/51
--- NOTE | 2020-01-12 08:15 | NUR ---
PT REPOSITIONED INTO HIGH FOWLERS AND ASSISTED WITH FEEDING; DRANK THIN LIQUIDS WITHOUT DIFFICULTY; PT HAS NO TEETH; DIET CHANGED TO PUREE. SHE ATE 100% OF BREAKFAST. AM MEDS GIVEN CRUSHED WITH PUDDING. BP MEDS HELD FOR LOW BLOOD PRESSURE.
[2020-01-12 11:00] VITALS: BP 104/70
[2020-01-12] MEDS ORDERED: KEPPRA250 M1 PO (12:04)
[2020-01-12] MEDS ORDERED: KEFLEX500 M1 PO (12:04)
--- NOTE | 2020-01-12 12:36 | NUR ---
DR. NUNEZ AT BEDSIDE.
--- NOTE | 2020-01-12 12:50 | NUR ---
IV site discontinued, cath intact. No edema , no redness, voices no discomfort.
--- NOTE | 2020-01-12 13:30 | NUR ---
AT BEDSIDE. PT ASSISTED TO BEDSIDE CHAIR. SITTING UP WATCHING TV. PT STOOD AND TRANSFERRED WITH 2 PERSON ASSIST.
[2020-01-12 15:15] VITALS: BP 104/50
--- NOTE | 2020-01-12 16:53 | NUR ---
PT CHANGED INTO CLOTHES, TELE REMOVED, AND CALLED TO PICK PATIENT UP.
--- NOTE | 2020-01-12 17:12 | NUR ---
Discharge instructions given. Patient verbalizes understanding of same. Discharged in stable condition via Wheelchair to ACLF with spouse. All belongings sent with pt.
--- NOTE | 2020-01-12 19:49 | NUR ---
01/11/20 at 2330 Late entry Status unchanged at present, HR remains Afib/flutter with rate in high 90's to 110 after IV lopressor given at 2200, appears asleep, resp unlabored, lungs diminished in all lobes bilaterally, repositioned for comfort and adult brief and pads changed by FRENCH LECTURER. Oriented to name only, mutters quietly to slef, no discomforts noted at this time.
--- NOTE | 2020-01-12 19:55 | NUR ---
01/12/20 at 0400 Late entry Remains asleep at present, VSWNL, telemetry intact remains in Afib/Flutter with rate now in 60's. Resp unlabored, skin WNL, no discomforts noted at this time.
--- NOTE | 2020-01-13 09:32 | NUR ---
PRELIMINARY BLOOD CULTURE RESULTS CALLED TO FRANCISCO JOSEPH. 2 SETS GROWING GRAM (+) COCCI. ATTEPMT TO REACH THE PATIENT AT NUMBER ON FILE WAS UNANSWERED AT 8:11AM. NEXT OF KIN DOES NOT HAVE PHONE NUMBER LISTED. PHARMACY WILL FOLLOW FOR FINAL RESULTS.
== END 2020-01-12 17:12 | disposition home or self-care (01) ==
LOC: ED 09:04 → ED-I 12:25 → ED 12:43 → ED-I 12:44 → MS2 13:57
PROVIDERS: Family Medicine; Nurse Practitioner Family; ADMIT Internal Medicine; ATTEND Internal Medicine
DX: G40.909 Epilepsy, unspecified, not intractable, without status epilepticus (principal); N39.0 Urinary tract infection, site not specified; R78.81 Bacteremia; E87.2 Acidosis; I10 Essential (primary) hypertension; I48.20 Chronic atrial fibrillation, unspecified; F03.90 Unspecified dementia, unspecified severity, without behavioral disturbance, psychotic disturbance, mood disturbance, and anxiety; E03.9 Hypothyroidism, unspecified; E78.5 Hyperlipidemia, unspecified; G62.9 Polyneuropathy, unspecified; B96.20 Unspecified Escherichia coli [E. coli] as the cause of diseases classified elsewhere; Z79.01 Long term (current) use of anticoagulants; Z86.73 Personal history of transient ischemic attack (TIA), and cerebral infarction without residual deficits; Z20.828 Contact with and (suspected) exposure to other viral communicable diseases
CPT/HCPCS: G0378

== ENCOUNTER 2020-03-03 12:48 | Emergency (ER) | payer MEDICARE ==
[~2020-03-03] VITALS: Ht 157.5 cm; Wt 75.0 kg
[~2020-03-03 12:48] MED LIST changes: +DOCUSATE CAL240 MG PO; +ESCITALOPRAM OX10 MG PO; +KEPPRA250 M1 PO; +LEVOTHYROXIN125 MCG PO; +LIPITOR40 M1 PO; +MONTELUKAST SOD10 MG PO; +OMEPRAZOLE20 MG PO; +PEG 3350 PO; +VITAMIN D31000 UNI1 PO; +[UNRECOGNIZED DRUG - OTHER] PO
[2020-03-03 13:22] LABS: HEMATOCRIT 44.2 % (37.0-47.0); HEMOGLOBIN 14.2 g/dl (12.0-16.0); IMMATURE GRANULOCYTES 0.4 % (0.0-5.0); MEAN CELL VOLUME 88.4 fL CALC (80.0-100.0); MEAN CORPUSCULAR HGB 28.4 pG CALC (26.0-32.0); MEAN CORPUSCULAR HGB CONC 32.1 g/dL CAL (32.0-36.0); NEUT# 8.6 thou/uL (2.00-7.15); RED CELL DISTRI WIDTH 12.6 % (11.5-15.5)
[2020-03-03 13:33] LABS: ALBUMIN 4.3 g/dL (3.2-5.0); ALKALINE PHOSPHATASE 85 u/l (38-126); ANION GAP 18 (6-22 (CALC)); BUN 13 mg/dL (8-23); BUN/CREATININE RATIO 19 (12-20 (CALC)); CHLORIDE 104 mmol/l (95-108); CREATININE 0.7 mg/dL (0.5-1.0); GFR > 60 ML/MIN (>=60 (CALC)); GFR FOR AFR.AMER. > 60 ML/MIN (>=60 (CALC)); POTASSIUM 4.3 mmol/l (3.5-5.1); SGOT/AST 44 u/l (9-36); SODIUM 137 mmol/l (137-146); TOTAL PROTEIN 7.8 g/dL (6.3-8.2)
[2020-03-03 13:41] LABS: CARBON DIOXIDE 19 mmol/l (22-30)
[2020-03-03 14:34] LABS: INTERNATIONAL NORMALIZED RATIO 1.3 RATIO (0.7-1.3)
[2020-03-03 17:20] VITALS: BP 141/63
[2020-03-03 17:22] LABS: URINE BILIRUBIN - DIPSTICK NEGATIVE (NEGATIVE); URINE BLOOD DIPSTICK TRACE-INTACT (NEGATIVE); URINE COLOR YELLOW; URINE GLUCOSE - DIPSTICK NEGATIVE (NEGATIVE); URINE KETONE TRACE mg/dL (NEGATIVE); URINE LEUK ESTERASE NEGATIVE (NEGATIVE); URINE NITRITE - DIPSTICK NEGATIVE (Negative); URINE PH 7.5 (4.5-8.0); URINE PROTEIN - DIPSTICK NEGATIVE (NEG-TRACE); URINE SPECIFIC GRAVITY 1.015; URINE UROBILINOGEN - DIPSTICK 0.2 E.U./dL (0.2)
== END 2020-03-03 17:20 | disposition short-term general hospital (02) ==
LOC: ED 12:48
PROVIDERS: Student in an Organized Health Care Education/Training Program
PROC: 0T9B70Z Drainage of Bladder with Drainage Device, Via Natural or Artificial Opening (ICD-10-PCS; principal; 2020-03-03)
PROC: 06HY33Z Insertion of Infusion Device into Lower Vein, Percutaneous Approach (ICD-10-PCS; 2020-03-03)
PROC: 0BH17EZ Insertion of Endotracheal Airway into Trachea, Via Natural or Artificial Opening (ICD-10-PCS; 2020-03-03)
DX: I62.00 Nontraumatic subdural hemorrhage, unspecified (principal); I60.9 Nontraumatic subarachnoid hemorrhage, unspecified; I95.9 Hypotension, unspecified; R56.9 Unspecified convulsions; I48.91 Unspecified atrial fibrillation; I10 Essential (primary) hypertension; F03.90 Unspecified dementia, unspecified severity, without behavioral disturbance, psychotic disturbance, mood disturbance, and anxiety; E03.9 Hypothyroidism, unspecified; T42.6X6A Underdosing of other antiepileptic and sedative-hypnotic drugs, initial encounter; Z91.128 Patient's intentional underdosing of medication regimen for other reason; Z79.01 Long term (current) use of anticoagulants; Z86.73 Personal history of transient ischemic attack (TIA), and cerebral infarction without residual deficits
CPT/HCPCS: J1953; J2060